=== PATIENT | male | born 1990 | race Caucasian/White ===

== ENCOUNTER → 2018-12-11 | Outpatient (CLI) | payer BC ==
[~2018-12-11] MED LIST: AMOXICILLIN500 MG PO; CATAFLAM50 MG PO; MOTRIN800 MG PO; NKHM; ZYRTEC10 M1 PO
[2018-12-11 13:22] LABS: HEMATOCRIT 45.9 % (42.0-52.0); HEMOGLOBIN 15.9 g/dl (14.0-18.0); MEAN CELL VOLUME 92.2 fl (80.0-94.0); MEAN CORPUSCULAR HGB 31.9 pg (27.0-31.0); MEAN CORPUSCULAR HGB CONC 34.6 g/dl (33.0-37.0); MEAN PLATELET VOLUME 9.8 fl (9.6-12.3); RED BLOOD COUNT 4.98 10*6/uL (4.50-5.90); RED CELL DISTRI WIDTH 12.2 % (0-14.5); WHITE BLOOD COUNT 5.4 10*3/uL (4.8-10.8)
[2018-12-11 13:33] LABS: ALBUMIN 4.1 gm/dl (3.1-4.5); BUN 13 mg/dl (7-24); CHLORIDE 103 mmol/L (98-107); CHOLESTEROL 166 mg/dL (<200); CREATININE 0.93 mg/dL (0.70-1.30); FREE T4 0.82 ng/dl (0.76-1.46); POTASSIUM 4.1 mmol/L (3.5-5.1); SGOT/AST 30 IU/L (3-35); SGPT/ALT 32 U/L (12-78); SODIUM 139 mmol/L (136-145); TRIGLYCERIDES 139 mg/dl (<150); VLDL CHOLESTEROL 28 mg/dL (6-40)
[2018-12-11 13:37] LABS: ALKALINE PHOSPHATASE 91 U/L (45-117); HDL CHOLESTEROL 42 mg/dl (40-60); TOTAL PROTEIN 7.8 gm/dL (6.4-8.2)
[2018-12-11 13:44] LABS: LDL CHOLESTEROL 96 mg/dL (9-159)
== END | disposition home or self-care (01) ==
LOC: LAB 12:44
PROVIDERS: Family Medicine
DX: E78.00 Pure hypercholesterolemia, unspecified (principal); F90.9 Attention-deficit hyperactivity disorder, unspecified type; G47.10 Hypersomnia, unspecified; R53.83 Other fatigue; F41.1 Generalized anxiety disorder; E74.00 Glycogen storage disease, unspecified

== ENCOUNTER → 2020-03-18 | Outpatient (CLI) | payer BC ==
[2020-03-18 14:21] LABS: HEMATOCRIT 45.1 % (42.0-52.0); MEAN CORPUSCULAR HGB 30.8 pg (27.0-31.0); MEAN CORPUSCULAR HGB CONC 34.6 g/dl (33.0-37.0); MEAN PLATELET VOLUME 9.7 fl (9.6-12.3); RED BLOOD COUNT 5.07 10*6/uL (4.50-5.90); RED CELL DISTRI WIDTH 12.2 % (0-14.5); WHITE BLOOD COUNT 6.8 10*3/uL (4.8-10.8)
[2020-03-18 14:42] LABS: ALKALINE PHOSPHATASE 92 U/L (45-117); BUN 11 mg/dl (7-24); CHLORIDE 104 mmol/L (98-107); CHOLESTEROL 190 mg/dL (<200); CREATININE 0.99 mg/dL (0.70-1.30); HDL CHOLESTEROL 35 mg/dl (40-60); LDL CHOLESTEROL 129 mg/dL (9-159); POTASSIUM 3.8 mmol/L (3.5-5.1); SGOT/AST 28 IU/L (3-35); SGPT/ALT 37 U/L (12-78); SODIUM 138 mmol/L (136-145); TOTAL PROTEIN 8.3 gm/dL (6.4-8.2); TRIGLYCERIDES 131 mg/dl (<150); VLDL CHOLESTEROL 26 mg/dL (6-40)
== END | disposition home or self-care (01) ==
LOC: LAB 13:32
PROVIDERS: Family Medicine
DX: Z13.220 Encounter for screening for lipoid disorders (principal); F90.9 Attention-deficit hyperactivity disorder, unspecified type; E55.9 Vitamin D deficiency, unspecified; E74.00 Glycogen storage disease, unspecified; F41.1 Generalized anxiety disorder

== ENCOUNTER → 2021-09-01 | Outpatient (CLI) | payer BC ==
[2021-09-01 12:46] LABS: HEMATOCRIT 44.7 % (42.0-52.0); MEAN CELL VOLUME 89.4 fl (80.0-94.0); MEAN CORPUSCULAR HGB 30.8 pg (27.0-31.0); MEAN CORPUSCULAR HGB CONC 34.5 g/dl (33.0-37.0); MEAN PLATELET VOLUME 9.7 fl (9.6-12.3); RED CELL DISTRI WIDTH 12.1 % (0-14.5); WHITE BLOOD COUNT 6.6 10*3/uL (4.8-10.8)
[2021-09-01 13:03] LABS: ALBUMIN 3.9 gm/dl (3.1-4.5); ALKALINE PHOSPHATASE 92 U/L (45-117); BUN 12 mg/dl (7-24); CHLORIDE 105 mmol/L (98-107); CHOLESTEROL 183 mg/dL (<200); CREATININE 0.98 mg/dL (0.70-1.30); FREE T4 0.92 ng/dl (0.76-1.46); LDL CHOLESTEROL 127 mg/dL (9-159); POTASSIUM 3.8 mmol/L (3.5-5.1); SGOT/AST 27 IU/L (3-35); SGPT/ALT 34 U/L (12-78); SODIUM 140 mmol/L (136-145); TOTAL PROTEIN 7.9 gm/dL (6.4-8.2); TRIGLYCERIDES 116 mg/dl (<150)
== END | disposition home or self-care (01) ==
LOC: LAB 12:09
PROVIDERS: ATTEND Family Medicine
DX: Z00.00 Encounter for general adult medical examination without abnormal findings (principal); R53.83 Other fatigue; R63.5 Abnormal weight gain

== ENCOUNTER → 2022-06-07 | Outpatient (CLI) | payer BC ==
[2022-06-07 14:40] LABS: HEMATOCRIT 44.8 % (42.0-52.0); MEAN CELL VOLUME 92.2 fl (80.0-94.0); MEAN CORPUSCULAR HGB 31.7 pg (27.0-31.0); MEAN CORPUSCULAR HGB CONC 34.4 g/dl (33.0-37.0); MEAN PLATELET VOLUME 9.5 fl (9.6-12.3); RED BLOOD COUNT 4.86 10*6/uL (4.50-5.90); RED CELL DISTRI WIDTH 11.9 % (0-14.5); WHITE BLOOD COUNT 6.7 10*3/uL (4.8-10.8)
[2022-06-07 15:04] LABS: ALKALINE PHOSPHATASE 107 U/L (45-117); BUN 14 mg/dl (7-24); CHLORIDE 108 mmol/L (98-107); CHOLESTEROL 167 mg/dL (<200); CREATININE 0.87 mg/dL (0.70-1.30); FREE T4 0.93 ng/dl (0.76-1.46); LDL CHOLESTEROL 106 mg/dL (9-159); POTASSIUM 3.8 mmol/L (3.5-5.1); SGOT/AST 34 IU/L (3-35); SGPT/ALT 33 U/L (12-78); SODIUM 138 mmol/L (136-145); TOTAL PROTEIN 7.9 gm/dL (6.4-8.2); TRIGLYCERIDES 177 mg/dl (<150)
[2022-06-07 15:48] LABS: VITAMIN D, 25-HYDROXY 27.5 ng/mL (30-100)
== END | disposition home or self-care (01) ==
LOC: LAB 14:21
PROVIDERS: ATTEND Family Medicine
DX: Z00.00 Encounter for general adult medical examination without abnormal findings (principal); E55.9 Vitamin D deficiency, unspecified; R53.83 Other fatigue; D72.828 Other elevated white blood cell count